=== PATIENT | female | born 1950 | race Two or more races ===

== ENCOUNTER 2024-11-24 12:34 | Emergency (ER) | payer MEDICARE, MEDICAID ==
[~2024-11-24] VITALS: Ht 167.6 cm; Wt 56.3 kg
--- NOTE | 2024-11-24 15:00 | ED.PDOC ---
Musculoskeletal HPI Comments 73-year-old female patient presents to the clinic for erythema surrounding the left toenail bed. Patient states that it started about 2 days ago. Patient denies any injury or trauma. Patient has a history of diabetes. Patient is currently taking insulin for diabetes. Patient states that she does not follow up with a pallet assembler. Chief Complaint: Lower Extremity Time Seen by MD: 13:05 Reviewed Notes: Nurses Notes, Medications, Allergies Allergies: Coded Allergies: Iron (Verified Allergy, Unknown, 11/24/24) Penicillins (Verified Allergy, Unknown, 11/24/24) Home Meds Active Scripts Ibuprofen (Ibuprofen) 400 Mg Tab, 1 TAB PO TID for 10 Days, #30 TAB Prov:FLAKO DIALLO [facility] 11/24/24 Cephalexin Monohydrate (Cephalexin) 500 Mg Cap, 1 CAP PO QID for 10 Days, #40 CAP 0 Refills Prov:YOELFLAKO [facility] 11/24/24 Information Source: Patient Mode of Arrival: Ambulatory Location: Left Extremity Location: Foot, Great Toe Timing: Days Past Medical History PAST MEDICAL HISTORY: DM 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 all ELECTRICIAN DECK Hx Constitutional: denies: chills, diaphoresis, fatigue, fever, malaise, sweats, weakness, others EENTM: denies: blurred vision, double vision, ear bleeding, ear discharge, ear drainage, ear pain, ear ringing, eye pain, eye redness, hearing loss, mouth pain, mouth swelling, nasal discharge, nose bleeding, nose congestion, nose pain, photophobia, tearing, throat pain, throat swelling, voice changes, others Respiratory: denies: cough, hemoptysis, orthopnea, SOB at rest, shortness of breath, SOB with excertion, stridor, wheezing, others Cardiovascular: denies: chest pain, dizzy spells, diaphoresis, Dyspnea on exertion, edema, irregular heart beat, left arm pain, lightheadedness, palpita tions, PND, syncope, others Gastrointestinal: denies: abdomen distended, abdominal pain, blood streaked nely wels, constipated, diarrhea, dysphagia, difficulty swallowing, hematemesis, melena, nausea, poor appetite, poor fluid intake, rectal bleeding, rectal pain, vomiting, others Genitourinary: denies: abnormal vagina bleeding, burning, dyspareunia, dysuria, flank pain, frequency, hematuria, incontinence, pain, , vagina discharge, urgency, others Neurological: denies: dizziness, fainting, headache, left sided numbness, left sided weakness, numbness, paresthesia, pre-existing deficit, right sided numbness, right sided weakness, seizure, speech problems, tingling, tremors, weakness, others Musculoskeletal: reports: others (Ingrown toenail on the left) Integumetry: denies: bruises, change in color, change in hair/nails, dryness, laceration, lesions, lumps, rash, wounds, others Allergic/Immunocompromised: denies: Difficulty Healing, Frequent Infections, Hives, Itching, others Hematologic/Lymphatic: denies: anemia, blood clots, easy bleeding, easy bruising, swollen glands, others Endocrine: denies: excessive hunger, excessive sweating, excessive thirst, excessive urination, flushing, intolerance to cold, intolerance to heat, unexplained weight gain, unexplained weight loss, others Psychiatric: denies: anxiety, bipolar disorder, depression, hopeless, panic disorder, schizophrenia, sleepless, suicidal, others All Other Systems: Reviewed and Negative Physical Exam General Appearance: No Apparent Distress, Normal HEENT: Normal ENT Inspection, Pharynx Normal, TMs Normal Neck: Full Range of Motion, Non-Tender, Normal, Normal Inspection Respiratory: Chest Non-Tender, Lungs Clear, No Accessory Muscle Use, No Respiratory Distress, Normal Breath Sounds Cardiovascular: No Edema, No JVD, No Murmur, No Gallop, Normal Peripheral Pulses, Regular Rate/Rhythm Breast Exam: Deferred Gastrointestinal: No Organomegaly, Non Tender, No Pulsatile Mass, Normal Bowel Sounds, Soft Genitalia: Deferred Pelvic: Deferred Rectal: Deferred Extremities: No calf tenderness, Normal capillary refill, Normal inspection, Normal range of motion, Non-tender, No pedal edema Musculoskeletal : Apperance: Normal Neurologic: Alert, 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 Was a procedure done?: Yes Sedation Sedation?: No Informed consent obtained: Yes Incision and Drainage Incision and Drainage: Abscess Location left great toe Anesthetic: Lidocaine Preparation: Betadine, Saline Incision and Wound: Pus, Irrigated Informed consent obtained: Yes Risks/benefits/alt described: Yes Differential Diagnosis EXT Differential Diagnosis: Cellulitis X-Ray, Labs, Meds, VS Vital Signs Date Time Temp Pulse Resp B/P (MAP) Pulse Ox O2 Delivery O2 Flow Rate FiO2 11/24/24 15:42 92 16 98 Room Air 11/24/24 15:42 98.9 92 17 152/89 (110) 98 98.9 11/24/24 12:36 99.0 93 16 169/91 99 99.0 Lab Test 11/24/24 12:44 Range/Units POC Glucose 281 H 70-106 mg/dl Current Medications Medications (Trade) Dose Ordered Sig/Adam Route Start Time Stop Time Status Last Admin Lidocaine HCl (Xylocaine 1%) 5 ml ONCE ONCE IJ 11/24/24 15:00 11/24/24 15:47 DC 11/24/24 15:57 X-Ray, Labs, Meds, VS Comment On re-evaluation patient has symptomatic improvement. Patient advised to monitor for signs and symptoms of infection. Patient advised to follow up with PCP and pallet assembler within the next 2-3 days Patient is stable for discharge at this time. All test results and diagnostic imaging have been interpreted. All diagnostic findings, discharge care, and education instruction provided to the patient. Follow-up with PCP in 2-3 days Patient verbalized understanding, discharge instructions and agrees to treatment plan Vital signs are stable Patient is ambulatory Patient advised of which symptoms necessitate a return visit to the emergency room. Patient to return emergency room for any new worsening symptoms. Patient is aware that the purpose of this visit is for an acute medical emergency requiring emergent stabilization. Chronic conditions, including malignancies have not been ruled out. Patient is instructed to follow up with PCP as directed for continued care and workup. If unable to arrange follow up, patient is to return to the emergency room for reassessment. Patient was given verbal and written discharge instructions and acknowledges understanding Time of 1ST Reevaluation: 15:50 Reevaluation 1ST: Resolved Patient Education/Counseling: Diagnosis, Treatment, Prognosis Family Education/Counseling: Diagnosis, Treatment, Prognosis Departure 1 Departure Time of Disposition: 15:55 Impression: Primary Impression: Paronychia due to ingrown nail Disposition: 01 HOME / SELF CARE / HOMELESS Condition: Stable e-Prescriptions Ibuprofen (Ibuprofen) 400 Mg Tab 1 TAB PO TID for 10 Days, #30 TAB Prov: FLAKO DIALLO [facility] 11/24/24 Cephalexin Monohydrate (Cephalexin) 500 Mg Cap 1 CAP PO QID for 10 Days, #40 CAP 0 Refills Prov: HATTIE DIALLOANNE [facility] 11/24/24 Critical Care Note Critical Care Time?: No Stability Stability form required: No Heart Score Heart Score: Heart Score Response (Comments) Value History N/A 0 EKG N/A 0 Age N/A 0 Risk Factors N/A 0 Troponin N/A 0 Total 0 FLAKO DIALLO [facility] Nov 24, 2024 15:00
[2024-11-24] MEDS ORDERED: CEPH500C PO (15:05)
[2024-11-24 15:42] VITALS: BP 152/89; PULSE 92; RESP 16; TEMP 98.9; O2SAT 98
[2024-11-24] MEDS: LIDOCAINE 1% (LOCAL ANESTH.) PF 5ml SDV IJ ONE (15:57)
[2024-11-24] MEDS ORDERED: IBUP-1453 PO (15:58)
== END 2024-11-24 16:00 | disposition home or self-care (01) ==
LOC: ER 12:34
DX: L60.0 Ingrowing nail (principal); E11.9 Type 2 diabetes mellitus without complications; Z88.0 Allergy status to penicillin; Z79.899 Other long term (current) drug therapy
CPT/HCPCS: 10060; 82947; 82962